=== PATIENT | female | born 1935 | race Caucasian/White ===

== ENCOUNTER 2018-12-27 10:44 | Emergency (ER) | payer MEDICARE ==
--- NOTE | 2018-12-27 12:06 | RAD ---
LEFT SHOULDER 3 VIEWS: Date: 12/27/18 HISTORY: Left shoulder pain. COMPARISON: 09/18/09. FINDINGS: Acromioclavicular and glenohumeral alignment are maintained. Moderate osteophytosis. Healed fracture of the humeral neck is apparent. Multiple metallic anchors at the humeral head. No acute fracture, di slocation, or aggressive osseous erosions. IMPRESSION: Old post-traumatic and postoperative changes of the left shoulder. No acute osseous abnormalities are demonstrated. POS: [facility]
== END 2018-12-27 12:04 | disposition home or self-care (01) ==
LOC: BURERS 10:44
DX: M25.512 Pain in left shoulder (principal); I10 Essential (primary) hypertension; E11.9 Type 2 diabetes mellitus without complications; E78.5 Hyperlipidemia, unspecified; Z79.899 Other long term (current) drug therapy